=== PATIENT | male | born 2000 | race Two or more races ===

== ENCOUNTER 2018-11-27 22:34 | Emergency (ER) | payer MEDICAID ==
[~2018-11-27] VITALS: Ht 167.6 cm; Wt 53.9 kg
[2018-11-27 22:38] VITALS: BP 119/59
--- NOTE | 2018-11-27 22:45 | NUR ---
assessment made. chart up for MD to see.
--- NOTE | 2018-11-27 22:47 | NUR ---
PA at bedside.
[2018-11-27] MEDS ORDERED: HYDROcodone/APAP 5/325 TABLET PO STA (22:50)
[2018-11-27] MEDS ORDERED: HYDROcodone/APAP 5/325 TABLET ONE (22:50)
--- NOTE | 2018-11-27 22:58 | NUR ---
patient medicated for pain. discharged with prescriptions and instruction. verbalized understanding.
== END 2018-11-27 23:01 | disposition home or self-care (01) ==
LOC: ED 22:45
DX: K08.89 Other specified disorders of teeth and supporting structures (principal); F17.210 Nicotine dependence, cigarettes, uncomplicated
CPT/HCPCS: 99283